=== PATIENT | female | born 1965 | race Caucasian/White ===

== ENCOUNTER → 2023-09-09 09:46 | Outpatient (REF) | payer BC, SELFPAY | LOC: RAD 09:46 | PROVIDERS: ATTENDING PHYSICIAN Surgery; FAMILY PHYSICIAN Internal Medicine | DX: K44.9 Diaphragmatic hernia without obstruction or gangrene (principal) | CPT/HCPCS: 74246 ==

== ENCOUNTER 2023-09-25 06:45 | Day surgery (SDC) | payer BC, SELFPAY ==
[2023-09-25 13:17] VITALS: BMI 28.0
[2023-09-25 13:19] VITALS: BMI 28.0
[2023-09-25 13:20] VITALS: BP 161/89
[2023-09-25 14:33] VITALS: BP 136/80
[2023-09-25 14:45] VITALS: BP 132/84
== END 2023-09-25 15:05 | disposition home or self-care (01) ==
LOC: GI 06:45
PROVIDERS: ATTENDING PHYSICIAN Surgery
DX: R13.10 Dysphagia, unspecified (principal); K21.9 Gastro-esophageal reflux disease without esophagitis; K44.9 Diaphragmatic hernia without obstruction or gangrene; K31.89 Other diseases of stomach and duodenum
CPT/HCPCS: 43239; 88305; 88342

== ENCOUNTER 2023-10-29 06:25 | Day surgery (SDC) | payer BC, SELFPAY ==
[2023-10-22 07:07] VITALS: BMI 29.8
[2023-10-22 08:58] LABS: Hematocrit 28.5 % (37.0-47.0); Hemoglobin 8.1 g/dL (12.0-16.0); Mean Corp Hgb Conc. 28.4 g/dL (33.0-37.0); Mean Corpuscular Hgb 20.7 pg (27.0-31.0); Mean Corpuscular Volume 72.9 fL (81.0-99.0); Mean Platelet Volume 11.3 fL (7.4-10.4); Platelet Count 401 10^3/uL (130-400); Red Blood Cell Count 3.91 10^6/uL (4.20-5.40); Red Cell Dist. Width 17.8 % (11.5-14.5); White Blood Cell Count 6.2 10^3/uL (4.8-10.8)
[2023-10-22 10:25] LABS: Blood Urea Nitrogen 19 mg/dl (7-17); Calcium 9.4 mg/dl (8.4-10.2); Carbon Dioxide 29 mmol/L (22-30); Chloride 100 mmol/L (98-107); Estimated Creatinine Clearance 74 ml/min; Glucose 91 mg/dl (70-99); Sodium 139 mmol/L (135-145); eGFR > 60.00
--- NOTE | 2023-10-22 14:09 | PTCARENOTE ---
Abnormal ECG OK per Dr. Pace.
--- NOTE | 2023-10-23 08:46 | PTCARENOTE ---
Patients 10/21 [facility] 8.1- Anastasia @ Dr. Hercules office notified
--- NOTE | 2023-10-23 14:00 | PTCARENOTE ---
Patients 10/21 [facility] 8.1- reviewed by Dr. Duron- requested surgeon be notified, surgeons notified earlier this morning
[2023-10-29] VITALS (11 sets, daily range): BP systolic 128–147; BP diastolic 68–94; BMI 29.8
[2023-10-29] MEDS: TYLENOL 1000 MG PO (11:20)
[2023-10-29] MEDS: NORMOSOL-R 1000 IV ×2 (11:20→16:25)
--- NOTE | 2023-10-29 14:38 | W.IMMPOSTOP ---
Addendum entered and electronically signed by Jatin Chatterjee MD 10/29/23 15:03:
[facility]# [id number]
Original Note:
Surgical Immed Post Op Note
-
Primary Surgeon: Shena
Assisting Surgeon: SKIP [email or web address]
Pre-op Diagnosis: Paraesophageal hernia
Post-op Diagnosis: Paraesophageal hernia
Procedure Performed: Laparoscopic paraesophageal hernia repair with Ishan fundoplication
Anesthesia Type: General
Specimen / Cultures: None
Estimated Blood Loss: 3 cc
Complications: None
Operative Findings:
1. Moderate PEH with 20-25% of stomach within chest
2. > 3 cm esophageal mobilization, bl vagi identified and protected
3. Posterior crural closure 0 silk x3
4. Loose floppy 2 cm Ishan fundoplication over 60 Fr Bougie
5. No pleural violation
[2023-10-29] MEDS: DILAUDID 0.5 MG IV ×3 (15:23→20:26)
[2023-10-29 15:35] LABS: Hematocrit 25.7 % (37.0-47.0); Hemoglobin 7.5 g/dL (12.0-16.0); Mean Corp Hgb Conc. 29.2 g/dL (33.0-37.0); Mean Corpuscular Hgb 20.7 pg (27.0-31.0); Mean Platelet Volume 10.7 fL (7.4-10.4); Platelet Count 325 10^3/uL (130-400); Red Blood Cell Count 3.62 10^6/uL (4.20-5.40); Red Cell Dist. Width 17.5 % (11.5-14.5); White Blood Cell Count 7.2 10^3/uL (4.8-10.8)
[2023-10-29] MEDS: DEMEROL 12.5 MG IV (15:49)
[2023-10-29] MEDS: DILAUDID 0.25 MG IV (16:14)
[2023-10-29] MEDS: OFIRMEV 100 IV (18:01)
[2023-10-30] VITALS (8 sets, daily range): BP systolic 109–160; BP diastolic 62–89
[2023-10-30] MEDS: OFIRMEV 100 IV ×3 (00:18→11:55)
[2023-10-30] MEDS: NORMOSOL-R 1000 IV ×2 (00:45→11:55)
[2023-10-30] MEDS: DILAUDID 0.5 MG IV ×2 (00:46→06:40)
--- NOTE | 2023-10-30 08:00 | W.PN.GS2 ---
Addendum entered and electronically signed by Jatin Chatterjee MD 10/30/23 15:01:
Labs consistent with chronic Fe deficiency anemia. No signs of acute blood loss anemia. Plan for transfusion 1U pRBC, will start Fe supplementation as outpatient (holding for now given constipation risks and tolerance of additional PO meds).
Repeat CBC tomorrow. Tolerated clears, plan to advance to fulls for tonight. Will reassess tomorrow and advance to post-Ishan soft diet as able. Can DC IVF when transfusion starts, pt reports voiding large amounts of urine and BP slightly
elevated.
Original Note:
Today's Communication / Plan
-
-- See below
Assessment / Plan
-
Patient is a 58 yo F POD#1 s/p laparoscopic paraesophageal hernia repair with Ishan fundoplication
Reports of chest and shoulder discomfort are typical post paraesophageal hernia repair. Pain control with transition to oral meds. No issues with swallowing, will advance diet. Recheck on blood counts as well as iron studies. Anemic
preoperatively, may need transfusion for chronic anemia, will likely need to be on an iron supplement as an outpatient.
-- Clears ADAT to soft food diet
-- Maintain IVF until adequate PO intake
-- Pain control: Tylenol, Toradol, Oxycodone, IV Dilaudid PRN
-- Recheck on CBC and iron studies, may need blood transfusion
-- Home BB and anti-depressant ordered
-- Lovenox for DVT
-- No need for PPI
-- DC pending progression throughout the day
Subjective Data
-
Date of Service: October 30, 2023
Reports chest discomfort and difficulties with sleeping. Denies any dysphagia, no nausea or vomiting, no reflux symptoms. No shortness of breath. Mild dizziness with getting up to go to the bathroom. Voiding. Ambulating.
Objective Data
-
Intake and Output
10/29/23 10/30/23 10/31/23
06:59 06:59 06:59
Intake Total 1350 / 1350
Balance 1350 / 1350
Intake:
IV fluids (Total) 1250 / 1250
Normosol 150 / 150
IV piggybacks 100 / 100
Vital Signs
Temp Pulse Resp BP Pulse Ox
97.9 F 68 18 160/82 99
10/30/23 03:15 10/30/23 03:15 10/30/23 03:15 10/30/23 03:15 10/30/23 03:15
Calcium 9.4 mg/dl (8.4-10.2) 10/22/23 07:02
Physical Exam
-
Gen: NAD
Abd: soft, mild tenderness in epigastrium, ND, non-peritoneal incisions c/d/i - no erythema, ecchymosis or drainage
[2023-10-30] MEDS: LOPRESSOR 25 MG PO (08:35)
[2023-10-30] MEDS: EFFEXOR XR 150 MG PO (08:35)
[2023-10-30] MEDS: TORADOL 15 MG IV ×3 (08:35→20:18)
[2023-10-30 09:04] LABS: Hematocrit 24.8 % (37.0-47.0); Hemoglobin 7.1 g/dL (12.0-16.0); Mean Corp Hgb Conc. 28.6 g/dL (33.0-37.0); Mean Corpuscular Hgb 20.5 pg (27.0-31.0); Mean Corpuscular Volume 71.5 fL (81.0-99.0); Mean Platelet Volume 10.7 fL (7.4-10.4); Platelet Count 277 10^3/uL (130-400); Red Blood Cell Count 3.47 10^6/uL (4.20-5.40); Red Cell Dist. Width 17.5 % (11.5-14.5); White Blood Cell Count 6.8 10^3/uL (4.8-10.8)
[2023-10-30 09:22] LABS: Blood Urea Nitrogen 11 mg/dl (7-17); Carbon Dioxide 26 mmol/L (22-30); Chloride 104 mmol/L (98-107); Estimated Creatinine Clearance 99 ml/min; Glucose 85 mg/dl (70-99); Iron 34 ug/dl (37-170); Potassium 4.3 mmol/L (3.5-5.1); Sodium 134 mmol/L (135-145); eGFR > 60.00
[2023-10-30 09:32] LABS: Percent Saturation 8 % (20-50); Total Iron Binding Capacity 405 ug/dl (265-497)
--- NOTE | 2023-10-30 10:48 | CM ---
Patient seen bedside.
IA completed.
Patient lives alone in a 2nd floor apartment, no elevator.
No assistive devices.
Drives.
denies home care needs.
Daughter will transport home.
PCP: Dr Cabrera
Pharmacy: [facility]
Plan: home no needs.
[2023-10-30 12:16] LABS: Ferritin 7.2 ng/ml (11.1-264.0)
[2023-10-30] MEDS: ZOFRAN 4 MG IV (14:06)
[2023-10-30] MEDS: LOVENOX 40 MG SC (17:33)
[2023-10-31] MEDS: ROXICODONE ORAL SOLUTION 5 MG PO (02:37)
[2023-10-31 07:00] VITALS: BP 153/85
[2023-10-31 08:37] LABS: Hematocrit 28.8 % (37.0-47.0); Mean Corp Hgb Conc. 30.2 g/dL (33.0-37.0); Mean Corpuscular Hgb 21.3 pg (27.0-31.0); Mean Corpuscular Volume 70.6 fL (81.0-99.0); Mean Platelet Volume 10.3 fL (7.4-10.4); Platelet Count 282 10^3/uL (130-400); Red Blood Cell Count 4.08 10^6/uL (4.20-5.40); Red Cell Dist. Width 17.5 % (11.5-14.5); White Blood Cell Count 7.3 10^3/uL (4.8-10.8)
[2023-10-31 08:42] LABS: Hemoglobin 8.7 g/dL (12.0-16.0)
[2023-10-31] MEDS: LOPRESSOR 25 MG PO (09:11)
[2023-10-31] MEDS: TORADOL 15 MG IV (09:11)
[2023-10-31] MEDS: EFFEXOR XR 150 MG PO (09:11)
[2023-10-31] MEDS: FLUSH (NSS) 1 FLUSH IV (09:12)
--- NOTE | 2023-10-31 12:06 | W.PN.GS2 ---
Today's Communication / Plan
-
-- DC today
Assessment / Plan
-
Patient is a 58 yo F POD#2 s/p laparoscopic paraesophageal hernia repair with Ishan fundoplication
No postoperative issues at this time recovering well
Chronic anemia, iron deficiency, symptoms improved with transfusion, Hb responded appropriately, plan to discharge on supplemental iron
-- Post Ishan diet
-- HLIV
-- Pain control: Tylenol, Toradol, Oxycodone, IV Dilaudid PRN
-- Supplemental Fe
-- Home BB and anti-depressant ordered
-- Lovenox for DVT
-- No need for PPI
-- DC today
Subjective Data
-
Date of Service: October 31, 2023
No complaints, feels much improved. Improved energy levels, no headache. No reports of dysphagia, no nausea or vomiting. Tolerated eggs and a solid food breakfast. Voiding. Ambulating. No fevers.
Objective Data
-
Intake and Output
10/30/23 10/31/23 11/01/23
06:59 06:59 06:59
Intake Total 1350 / 1350 1360 / 1360
Balance 1350 / 1350 1360 / 1360
Intake:
Oral fluids 960 / 960
IV fluids (Total) 1250 / 1250 150 / 150
Normosol 150 / 150
IV piggybacks 100 / 100
Blood Product Amount Infused ( 250 / 250
mL)
Packed Rbc Leukoreduced Unit 250 / 250
[id number]
Other:
Number of approximated MODERATE 2
amounts of urine
Vital Signs
Temp Pulse Resp BP Pulse Ox
98.5 F 72 18 153/85 95
10/31/23 07:00 10/31/23 07:00 10/31/23 07:00 10/31/23 07:00 10/31/23 09:07
Lab Results
10/31/23 08:29
10/30/23 08:23
Calcium 8.0 mg/dl (8.4-10.2) L 10/30/23 08:23
Physical Exam
-
Gen: NAD
Abd: soft, NT/ND, incisions c/d/i - no erythema, ecchymosis or drainage
--- NOTE | 2023-10-31 12:14 | W.DS.TRANS ---
DC Summary - [employer]
-
Discharge Instructions:
Sleep Apnea Risk Low
Discharge Diagnosis/Procedures S/p laparoscopic paraesophageal hernia repair
and Ishan fundoplication
Diet Other diet
Additional Diets Post-Ishan diet. Soft food, avoid large chunks
of meat, large dried bed, or large dry pasta.
Chew food thoroughly. Small frequent meals.
Avoid drinking with a straw and carbonated
beverages as these may cause increased bloating.
Crush pills larger than a Tylenol tablet. Open
Effexor and sprinkle.
Activity No strenuous activity
Additional Activity No heavy lifting (>20 lbs) or strenuous
activities for 4-6 weeks postoperatively
Driving Restrictions No driving if two-story taking narcotics
Bathing Restrictions OK to Shower
Wound Care Keep incisions clean and dry. Glue will flake
off in 2 to 3 weeks. Stitches will dissolve.
Instructions:
Stand-Alone Forms:
Changes to Home Medications: Yes
Discharge Medications:
DC Medications w/original date entered in [employer]
estradiol-norethindrone acet 0.5 mg-0.1 mg tablet 1 tab PO DAILY 09/25/23
furosemide 40 mg tablet 40 mg PO DAILY 09/25/23
metoprolol tartrate 25 mg tablet 25 mg PO DAILY 09/25/23
venlafaxine 150 mg capsule,extended release 24 hr (Effexor XR) 150 mg PO DAILY 09/25/23
acetaminophen 325 mg tablet 650 mg (2 x 325 mg) PO Q4HPRN PRN mild pain #1 tab 10/31/23
ferrous sulfate 325 mg (65 mg iron) tablet (Iron (ferrous sulfate)) 325 mg PO DAILY #30 tabs 10/31/23
ibuprofen 200 mg tablet 400 - 600 mg (2 - 3 x 200 mg) PO Q6HPRN PRN moderate pain #1 tab 10/31/23
oxycodone 5 mg tablet 5 mg PO Q4HPRN PRN breakthrough/severe pain #7 tabs 10/31/23
Home Medication Changes
Pending Results: Yes
--- NOTE | 2023-10-31 12:29 | CM ---
Patient has been medically cleared for discharge to home with no additional skilled services. Met with patient who has no needs or requests. Family will transport home.
[2023-10-31 21:28] LABS: Transferrin 313 mg/dL (200-360)
== END 2023-10-31 13:11 | disposition home or self-care (01) ==
LOC: SDS 06:25
PROVIDERS: ATTENDING PHYSICIAN Surgery; FAMILY PHYSICIAN Internal Medicine
DX: K44.9 Diaphragmatic hernia without obstruction or gangrene (principal)
CPT/HCPCS: 43281; 36415; 36430; 80048; 82728; 83540; 83550; 84466; 85027; 86850; 86900; 86901; 86920; 93005; C1729; P9016

== ENCOUNTER → 2025-06-03 09:23 | Outpatient (REF) | payer BC, SELFPAY | LOC: RAD 09:23 | PROVIDERS: ATTENDING PHYSICIAN Surgery; FAMILY PHYSICIAN Internal Medicine | DX: K21.9 Gastro-esophageal reflux disease without esophagitis (principal); Z87.19 Personal history of other diseases of the digestive system; Z98.890 Other specified postprocedural states | CPT/HCPCS: 74246 ==